=== PATIENT | male | born 1940 | race Caucasian/White ===

== ENCOUNTER → 2016-08-03 | Outpatient (CLI) | payer OTHER | LOC: MMPC 11:11 | DX: R10.32 Left lower quadrant pain (principal); R10.31 Right lower quadrant pain; M54.5 Low back pain; E03.9 Hypothyroidism, unspecified; R60.0 Localized edema; M20.012 Mallet finger of left finger(s); Z86.010 Personal history of colon polyps | CPT/HCPCS: 99213; G0463 ==